=== PATIENT | female | born 1965 | race Caucasian/White ===

== ENCOUNTER 2016-09-06 12:50 | Observation (INO) ==
--- NOTE | 2016-09-06 09:53 | Discharge Summary ---
Outpatient Proc Discharge Plan - Plan Additional Instructions: Knee Scope Weight bearing as tolerated Elevate extremity Remove girma wrap and bulky dressing in the A.M. Leave steri strips in place May shower in 24 hours Use ice for 20 minutes every hour while awake for 2-3 days Begin gentle knee range of motion exercise No driving for 24 hours or while taking pain medications Call office with any questions or concerns at [phone] Prescriptions: Clindamycin [Cleocin] 150 mg PO Q6HR #7 capsule HYDROcodone/Acet 5/325 mg [[place] 5-325 mg] 1 tab PO Q6H PRN #14 tab PRN Reason: Pain Ibuprofen [Motrin] 800 mg PO Q8HR #20 tablet Home Medications: Albuterol Sulfate [Albuterol Inhaler] 2 puff IH QID 2 Days 08/06/15 [Rx] Clindamycin [Cleocin] 150 mg PO Q6HR #7 capsule 09/06/16 [Rx] Diclofenac Sodium [Voltaren] 1 appl TP DAILY 09/06/16 [History] Estradiol [Estrace] 1 mg PO DAILY 09/06/16 [History] Furosemide [Lasix] 40 mg PO DAILY 09/06/16 [History] HYDROcodone/Acet 5/325 mg [[place] 5-325 mg] 1 tab PO Q6H PRN #14 tab 09/06/16 [Rx ] Ibuprofen [Motrin] 800 mg PO Q8HR #20 tablet 09/06/16 [Rx] Lisinopril/Hydrochlorothiazide [Zestoretic 20-12.5 mg Tablet] 1 each PO DAILY [History] Potassium Chloride [K-Tab ER] 20 meq PO QAM 09/06/16 [History] Potassium Chloride [Klor-Con 10] 10 meq PO QPM 09/06/16 [History] Pregabalin [Lyrica] 75 mg PO DAILY 09/06/16 [History] Sertraline [Zoloft] 150 mg PO DAILY 09/06/16 [History]
[~2016-09-06 12:50] MED LIST: *HR* OxyCODONE/APAP 5/325 TABLET PO PRN
[2016-09-06] MEDS ORDERED: Ondansetron 4 MG/2 ML VIAL IVP ONE (13:03)
[2016-09-06] MEDS ORDERED: *HR* Labetalol 100 MG/20 ML MDV IVP PRN (13:03)
[2016-09-06] MEDS ORDERED: *HR* Promethazine 25 MG/ML VIAL IVP PRN (13:03)
[2016-09-06] MEDS ORDERED: *HR* Propofol 200 MG/20 ML VIAL IVP ONE (13:07)
[2016-09-06] MEDS ORDERED: *HR* FentaNYL (PF) 100 MCG/2 ML VIAL ONE ×3 (13:07→14:55)
[2016-09-06] MEDS ORDERED: Lidocaine -MPF 2% 2 ML VIAL ONE (13:12)
[2016-09-06] MEDS ORDERED: Ondansetron 4 MG/2 ML VIAL ONE (13:12)
[2016-09-06] MEDS ORDERED: Dexamethasone 4 MG/ML VIAL ONE (13:12)
[2016-09-06] MEDS ORDERED: Ringers Solution, Lactated 1,000 ML IVC SCH (13:15)
[2016-09-06] MEDS ORDERED: Albuterol 2.5 MG/3 ML NEBULIZER IH ONE (13:15)
[2016-09-06] MEDS ORDERED: CeFAZolin Pre 3,000 MG/100 ML 3,000 MG/100 ML BAG IVPB ONE (13:15)
--- NOTE | 2016-09-06 13:43 | History & Physical Report ---
Date of Encounter: 09/06/16 Time of Encounter: 13:42 24 Hour HP Update - Instructions Instructions: If the History and Physical is less than 30 days old and was completed prior to A.M. admission and or procedure and has NOT been updated on calendar day of procedure please complete this update prior to performing procedure. - Update Patient reports changes in Medical Condition: No Changes in examination, assessment, or condition: No Changes in Medication: No Preop tests/diagnostics Reviewed: Yes Surgery Remains Indicated: Yes Consent for Planned Operative Procedure(s) Verified: Yes - Pre-Operative Checklist Preoperative Checklist Indicated: No Prophylactic Antibiotic Ordered: Yes Is VTE Prophylaxis Indicated?: NO
--- NOTE | 2016-09-06 13:47 | Anesthesia Evaluation PreOp ---
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 (chronic back pain with morphine pain pump) Other Medical History: Other (obesity BMI=44.1) Anesthesia History: Past Anesthesia (hysterectomy), Problems (PONV), Difficult Airway (Ok with LMA in past) Alcohol Use: none Drug use: none Medications and Allergies Tramadol HCl [Tramadol HCl ER] 100 mg PO BID PRN #10 cpbp.25.75 03/10/15 [Rx] Cephalexin [Keflex] 500 mg PO QID #40 capsule 04/22/15 [Rx] GuaiFENesin ER [Mucinex] 1,200 mg PO BID #20 tbbp.12hr 04/22/15 [Rx] HYDROcodone/Acet 5/325 mg [[place] 5-325 mg] 1 tab PO Q6H PRN #8 tab 06/15/15 [Rx] Albuterol Sulfate [Albuterol Inhaler] 2 puff IH QID 2 Days 08/06/15 [Rx] Benzonatate [Tessalon] 200 mg PO TID PRN #20 capsule 08/06/15 [Rx] Cetirizine HCl [Zyrtec] 10 mg PO DAILY 4 Days 08/06/15 [Rx] Oseltamivir Phosphate [Tamiflu] 75 mg PO BID 5 Days 08/06/15 [Rx] Ibuprofen [Motrin] 400 mg PO Q6HR #30 tablet 03/07/16 [Rx] Ondansetron ODT [Zofran ODT] 4 mg PO Q6HR PRN #10 tab.rapdis 03/07/16 [Rx] Clindamycin [Cleocin] 150 mg PO Q6HR #7 capsule 09/06/16 [Rx] HYDROcodone/Acet 5/325 mg [[place] 5-325 mg] 1 tab PO Q6H PRN #14 tab 09/06/16 [Rx ] Ibuprofen [Motrin] 800 mg PO Q8HR #20 tablet 09/06/16 [Rx] Allergies prednisone Allergy (Verified 04/18/16 17:37) Palpitations caffeine [From Excedrin Migraine] Adverse Reaction (Verified 04/18/16 17:37) Dizziness codeine Adverse Reaction (Verified 04/18/16 17:37) Nausea Cortisone Adverse Reaction (Verified 04/18/16 17:37) Hypertension soap Adverse Reaction (Verified 08/23/16 15:32) Itching - Meds/Allergy Pre-op Review Medications Reviewed: Yes Allergies Reviewed: Yes Beta Blockers on Current Med List: No Anesthesia Results - Labs Laboratory Tests 03/05/16 03/07/16 08/23/16 15:40 17:32 15:45 WBC 6.5 Hgb 12.1 Hct 38.4 Plt Count 298 PT 10.9 INR 1.0 APTT 31.0 Sodium 141 Potassium 4.1 BUN Creatinine 08/23/16 15:45 WBC Hgb Hct Plt Count PT INR APTT Sodium Potassium BUN 10 Creatinine 0.79 - Imaging EKG: report reviewed (03/05/2016 SR NSST abnormality) Additional studies: 11/05/2014 Echo Impressions: LVEF 60%. Normal left ventricular size and systolic function. Normal diastolic function of the left ventricle. Mildly enlarged left atrial size. RV is mildly dilated with normal function. Normal right atrial size. No significant valvular dysfunction. Estimated RVSP was 27 mmHg. No pulmonary hypertension. The IVC is not dilated. Anesthesia Exam O2 Sat Height 1.68 m Height 1.68 m Height 1.68 m Weight 123.831 kg Weight 123.831 kg Weight 128.48 kg O2 Sat by Pulse Oximetry 94 Vital Signs Temp Pulse Resp BP Pulse Ox 98.1 F 50 16 107/60 94 09/06/16 13:30 09/06/16 13:30 09/06/16 13:30 09/06/16 13:30 09/06/16 13:30 Height: 5'6'' Weight: 273 lbs NPO (# of Hours): 8 Pain Scale: 6 Pain Scale Used: Numeric (1 - 10) - HEENT Pupil (Motor): EOMI Mallampati: IV Teeth: Normal Oral Opening: Greater than 3 - SERVICE UNIT OPERATOR LOC: Oriented SERVICE UNIT OPERATOR Motor: Normal RUE, Normal LUE, Normal RLE, Normal LLE, Normal Face SERVICE UNIT OPERATOR Sensory: Normal: RUE, LUE, LLE, Face, Deficit: RLE (radiculopathy) - Cardiac Rhythm: Regular Murmur: None - Pulmonary Breath Sounds: bilateral Clear Respiratory Effort: Symmetrical Anesthesia Assess/Plan ASA Score: 3 Modified [place] Scale for Level of Consciousness: Cooperative, oriented, and tranquil Anesthetic Plan: General Monitoring Plan: Standard Monitors Recovery Plan: PACU
[2016-09-06] MEDS ORDERED: Bupivacaine/EPI 1:200k 0.5%PF 10 ML VIAL ONE (14:15)
[2016-09-06] MEDS ORDERED: Bupivacaine/EPI 1:200k 0.5%PF 30 ML VIAL ONE (14:43)
--- NOTE | 2016-09-06 14:52 | Orthopedic Operative Note ---
Date of procedure: 09/06/16 Pre-op diagnosis: Left knee medial meniscus tear Post-op diagnosis: same Procedure: Procedure: Left knee arthroscopy partial medial menisectomy Estimated blood loss: 5cc Hardware: Cartilage surfaces: Patella: 3 Trochlear groove:normal Medial compartment: 3 Lateral compartment:normal Exam Under anesthesia: Full flexion full extension no instability Patient was brought to the operating room and placed on the operating room table. After general anesthesia was administered. The operative leg was examined and noted. The operative leg was prepped and draped in the sterile surgical fashion. The patient received IV antibiotics prior to skin incision. A superior medial outflow portal was established. The arthroscope was introduced through an anterolateral portal. Diagnostic evaluation of the patella trochlear groove medial and lateral compartments were performed. Patient noted to have grade 3 arthritic changes undersurface of patella medial femoral condyle. The medial and lateral menisci were evaluated. No tear of the lateral meniscus. Medial meniscus had a irreparable tear mid body. The medial meniscus tear was treated with a partial meniscectomy with a basket and a shaver to contour it appropriately. ACL and PCL were without pathology. The arthroscope was removed from the knee. Portals were closed with interrupted 2-0 nylon suture. The knee was infiltrated with half percent Marcaine with epinephrine. The patient was placed in a sterile dressing. The patient was extubated and tolerated the procedure well and transferred to the recovery room in stable condition. Anesthesia: ISABELA Surgeon: Yonathan Ch Condition: stable Disposition: PACU
[2016-09-06] MEDS: *HR* HYDROmorphone (PF) 1 MG/ML SYRINGE IVP PRN ×2 (15:21→15:55)
[2016-09-06] MEDS ORDERED: *HR* Morphine 2 MG/ML SYRINGE ONE ×2 (15:35→15:36)
[2016-09-06] MEDS ORDERED: Nitroglycerin 0.4 MG TAB.SUBL SL ONE (16:03)
--- NOTE | 2016-09-06 17:40 | Anesthesia Progress Note ---
Date of Encounter: 09/06/16 Time of Encounter: 17:24 Anesthesia Note - Note Note: 09/06/16 17:24 Patient c/o chest pain/pressure and nausea post op in PACU. She describes it as feeling like something is sitting on her chest. Patient had nausea, with emesis in PACU. O2 was applied by NC. VSS. RN had EKG tracing showing momentary run of wide complex rhythm. Tracing printed. Morphine 6mg given, nitro given SL, 12 lead obtained with no acute changes. Trop I sent. Due to previous co- morbidities decision was made to admit under hospitalist care. Dr Ch notified. Chest pain at this point is improving, VSS.
[2016-09-06] MEDS ORDERED: Ondansetron 4 MG/2 ML VIAL IVP PRN (18:33)
[2016-09-06] MEDS ORDERED: Naloxone 0.4 MG/ML INJ IVP PRN (18:33)
--- NOTE | 2016-09-06 19:38 | Internal Med History&Physical ---
<Edna Best - Last Filed: 09/06/16 20:26> Date of Encounter: 09/06/16 Time of Encounter: 19:00 Assessment and Plan (1) Chest pain Current visit: Yes Status: Acute 1 patient experienced chest pain today postoperatively she did have associated nausea vomiting as well as wide complex arrhythmia. EKG was obtained which revealed no ST T wave abnormalities first cardiac troponin was negative we will continue to cycle troponins 2 we will obtain cardiac echo 3 NPO after midnight 4 cardiac stress in am 5 oxygen as needed nitroglycerin for chest pain Qualifiers: Chest pain type: unspecified Qualified Code(s): R07.9 - Chest pain, unspecified (2) Hypertension Current visit: Yes Status: Acute 1 presently controlled we will continue with lisinopril hydrochlorothiazide caused to maintain systolic was 140 2 low sodium diet Qualifiers: Hypertension type: essential hypertension Qualified Code(s): I10 - Essential (primary) hypertension (3) S/P left knee arthroscopy Current visit: Yes Status: Acute 1 patient is to follow-up with Dr. Ch 2 continue with present pain regime (4) DVT prophylaxis Current visit: Yes Status: Acute [facility] Internal Medicine - H&P: HPI Admitted From: Intrahospital Transfer Plans for Post Hospital Care: Home History of present illness: Ms. Diaz is a 51 year old female past medical history of hypertension hyperlipidemia GERD radicular pain NH 2009. Patient underwent left arthroscopy per Dr. Ch today. Surgical procedure was unremarkable however doing postop patient experienced chest pain as well as a wide complex arrhythmia. She described the chest pain as pressure gas-like nonradiating she did become nauseous and vomited pain was relieved once she drank carbonated beverage. EKG was obtained per anesthesia sinus rhythm with no ST-T wave abnormalities. Troponin obtained which was 0 patient was admitted for further observation. Presently patient denies any chest pain or shortness of breath she sinus rhythm on the monitor lung sounds are clear heart sounds S1-S2 regular rate no rubs gallops clicks or murmurs noted left knee with dressing intact as well as ice pack but her extremities pink with brisk capillary refill bilaterally. She is hemodynamically stable at this time. I reviewed his case with Dr. Lowe who agrees with plan Past Med Surg Social Fam HX - Past Medical History Medical history: coronary artery disease, GERD, hyperlipidemia, hypertension, myocardial infarction Psychiatric history: anxiety, depression - Past Surgical History Surgical History: , cholecystectomy, hysterectomy, knee replacement, orthopedic, other - Social History Smoking Status: Never smoker Smokeless Tobacco Status: No Alcohol use: none Drug use: none - Family History Father Living Status: Still Living Hx Family Cardiac Disorders: Yes (heart disease and HTN ) Internal Medicine - H&P: Meds Albuterol Sulfate [Albuterol Inhaler] 2 puff IH QID 2 Days 08/06/15 [Rx] Clindamycin [Cleocin] 150 mg PO Q6HR #7 capsule 09/06/16 [Rx] Diclofenac Sodium [Voltaren] 1 appl TP DAILY 09/06/16 [History] Estradiol [Estrace] 1 mg PO DAILY 09/06/16 [History] Furosemide [Lasix] 40 mg PO DAILY 09/06/16 [History] HYDROcodone/Acet 5/325 mg [[address] 5-325 mg] 1 tab PO Q6H PRN #14 tab 09/06/16 [Rx ] Ibuprofen [Motrin] 800 mg PO Q8HR #20 tablet 09/06/16 [Rx] Lisinopril/Hydrochlorothiazide [Zestoretic 20-12.5 mg Tablet] 1 each PO DAILY [History] Potassium Chloride [K-Tab ER] 20 meq PO QAM 09/06/16 [History] Potassium Chloride [Klor-Con 10] 10 meq PO QPM 09/06/16 [History] Pregabalin [Lyrica] 75 mg PO DAILY 09/06/16 [History] Sertraline [Zoloft] 150 mg PO DAILY 09/06/16 [History] Allergies prednisone Allergy (Verified 09/06/16 14:04) Palpitations caffeine [From Excedrin Migraine] Adverse Reaction (Verified 09/06/16 14:04) Dizziness codeine Adverse Reaction (Verified 09/06/16 14:04) Nausea Cortisone Adverse Reaction (Verified 09/06/16 14:04) Hypertension soap Adverse Reaction (Verified 09/06/16 14:04) Itching All Systems PM: A 10-system review of systems was performed and is negative for pertinent findings except as documented above in the HPI. - Constitutional Constitutional: no chills, no fever(s), no night sweats - EENT Eyes: no change in vision, no discharge, no pain, no photophobia Nose, mouth and throat: no dysphagia, no nasal discharge, no neck pain, no sore throat - Cardiovascular Cardiovascular ROS IM: chest pain - Respiratory Respiratory: no cough, no dyspnea, no wheezing, no excessive phlegm production - Gastrointestinal Gastrointestinal: no abdominal pain, no diarrhea, no hematemesis, no hematochezia, no melena, no nausea, no vomiting - Genitourinary Genitourinary: no change in urinary stream, no dysuria, no flank pain, no hematuria - Musculoskeletal Musculoskeletal ROS IM: joint swelling, no numbness, no tingling - Neurological Neurological ROS: no confusion, no convulsions, no focal weakness, no numbness, no tingling, no tremor(s) - Constitutional Vitals: Temp Pulse Resp BP Pulse Ox 98.1 F 75 17 113/71 96 09/06/16 17:56 09/06/16 17:56 09/06/16 17:56 09/06/16 17:56 09/06/16 17:56 General appearance: Present: A&O X 3, morbidly obese, answers questions appropriately - Head Head exam: Present: atraumatic, normocephalic - Neck Neck exam general surgery: Present: supple, trachea midline. Absent: lymphadenopathy - Respiratory Respiratory exam: Present: CTAB. Absent: accessory muscle use, rales, rhonchi, wheezes - Cardiovascular Cardiovascular exam: Present: RRR, +S1, +S2. Absent: diastolic murmur, gallop, rubs, systolic murmur - GI/Abdominal GI/Abdominal exam: Present: normal bowel sounds, soft, no peritoneal signs. Absent: distended, tenderness - Extremities Exam Extremities exam: Present: warm, radial pulses palpable and symetrical. Absent : calf tenderness, cyanotic, pedal edema - Neurological Exam Neurological exam: Present: CN II-XII intact, oriented X3, no focal deficits. Absent: pronater drift, facial droop, speech deficit - Skin Skin exam: Present: dry, intact Internal Med - H&P Results - Labs CBC & Chem 7: 09/06/16 19:22 Labs: Cardiac Enzymes 09/06/16 Range/Units 16:39 Troponin I 0.00 (0-0.03) ng/mL - EKG Data EKG shows normal: sinus rhythm Rate: normal <Hermelindo Lowe R - Last Filed: 09/07/16 12:34> Date of Encounter: 09/06/16 Internal Medicine - H&P: HPI History of present illness: Ms. Diaz is a 51 year old female All Systems PM: A 10-system review of systems was performed and is negative for pertinent findings except as documented above in the HPI. - Constitutional Vitals: Temp Pulse Resp BP Pulse Ox 98.6 F 68 18 122/71 96 09/07/16 10:58 09/07/16 10:58 09/07/16 10:58 09/07/16 10:58 09/07/16 10:58 Internal Med - H&P Results - Labs CBC & Chem 7: 09/07/16 03:28 09/07/16 03:28 Labs: Short CBC 09/07/16 Range/Units 03:28 WBC 8.6 (4.3-11.1) K/mcL Hgb 12.1 (11.5-15.4) g/dL Hct 38.5 (35.3-44.9) % Plt Count 335 (140-400) K/mcL Neutrophils # 7.0 (1.6-8.9) K/mcL BMP 09/06/16 09/07/16 19:22 03:28 Sodium 141 142 Potassium 3.8 4.1 Chloride 105 108 Carbon Dioxide 24 26 BUN 13 15 Creatinine 0.97 0.84 Glucose 175 H 116 H Calcium 9.2 9.4 Cardiac Enzymes 09/06/16 09/06/16 09/07/16 Range/Units 16:39 19:22 03:28 Troponin I 0.00 0.00 0.00 (0-0.03) ng/mL - Attending Attestation I performed history and physical examination of the patient and discussed management with FACTORY WORKER/ANP. I reviewed the FACTORY WORKER/ANPs note and agree with the documented findings and plan of care. 51 Y/M with h/o HTN, HLD, GERD, reported NH in 2009 with normal LHC at that time , underwent left knee arthroplasty with Dr. Ch. In the post operative period she developed mid-sternal chest discomfort, with nausea and vomiting. She apparently had wide complex rhythm at the time of pain. Denies further chest pain or palpitations. O/E: Not in acute distress. Cardiac regular rate and rhythm. Lungs clear to auscultation. EKG personally reviewed by me shows sinus rhythm, no acute ischemic changes. Labs reviewed. Troponin negative. A/P: Chest pain / NSVT in the postoperative period: Cardiac monitoring, trend troponins. Magnesium level is normal. Check lipid panel. Cardiology consultation.
[2016-09-06] MEDS ORDERED: *HR* OxyCODONE/APAP 5/325 TABLET PO PRN (19:49)
[2016-09-06 19:52] LABS: BUN/Creatinine Ratio 13 (6-26); Blood Urea Nitrogen 13 mg/dL (7-20); Calcium 9.2 mg/dL (8.6-10.8); Carbon Dioxide 24 mEq/L (19-29); Chloride 105 mEq/L (98-109); Glucose 175 mg/dL (70-99); Osmolality,Calculated 296 (280-300); Potassium 3.8 mEq/L (3.5-4.5); Sodium 141 mEq/L (136-145); eGFR For African Americans > 60 (> 60); eGFR For Non-African Americans > 60 (> 60)
[2016-09-06] MEDS ORDERED: Aspirin 325 MG TABLET PO ONE (20:20)
[2016-09-06] MEDS: *HR* Morphine 2 MG/ML SYRINGE IVP PRN (20:53)
[2016-09-07 04:13] LABS: Basophils % 0.1 %; Hematocrit 38.5 % (35.3-44.9); Hemoglobin 12.1 g/dL (11.5-15.4); Immature Granulocytes % 0.2 % (0-4); Lymphocytes # 1.1 K/mcL (0.6-4.6); Mean Corpuscular HGB Conc 31.4 g/dL (31.6-35.5); Mean Corpuscular Hemoglobin 28.3 pg (28.0-33.3); Mean Corpuscular Volume 90.2 fL (83.0-100.0); Monocytes # 0.4 K/mcL (0.0-1.3); Monocytes % 4.9 %; Platelet Count 335 K/mcL (140-400); Red Blood Count 4.27 M/mcL (3.82-4.97); Red Cell Distribution Width 13.2 % (11.5-14.5); Segmented Neutrophils % 81.8 %
[2016-09-07 04:38] LABS: BUN/Creatinine Ratio 18 (6-26); Blood Urea Nitrogen 15 mg/dL (7-20); Calcium 9.4 mg/dL (8.6-10.8); Carbon Dioxide 26 mEq/L (19-29); Chloride 108 mEq/L (98-109); Chol/HDL Ratio 5.3 (0-4.9); Cholesterol 268 mg/dL (< 200); Glucose 116 mg/dL (70-99); HDL Cholesterol 51 mg/dL (40-59); LDL Cholesterol,Calculated 195 mg/dL (0-99); Osmolality,Calculated 296 (280-300); Potassium 4.1 mEq/L (3.5-4.5); Sodium 142 mEq/L (136-145); Triglycerides 111 mg/dL (< 150); eGFR For African Americans > 60 (> 60); eGFR For Non-African Americans > 60 (> 60)
[2016-09-07] MEDS ORDERED: Pregabalin 75 MG CAPSULE PO SCH (09:00)
[2016-09-07] MEDS ORDERED: Aspirin Enteric Coated 81 MG Tablet PO SCH (09:00)
[2016-09-07] MEDS ORDERED: Lisinopril-HCTZ 20-12.5mg TABLET PO SCH (09:00)
[2016-09-07] MEDS ORDERED: Furosemide 40 MG TABLET PO SCH (09:00)
[2016-09-07] MEDS: *HR* Morphine 2 MG/ML SYRINGE IVP PRN (09:14)
--- NOTE | 2016-09-07 10:18 | ECHO - Doppler Report ---
Echocardiogram Name: Crys Diaz Date of Study: 09/07/2016 Date: 1965 Ht: 66.0 in Medical Record#: [id number] Age: 51 Wt: 270.0 lb Gender: Female BSA: 2.27 Order #: [id number] Location: [facility] Room #: [id number] Reading Physician: Vince Shields DO, KENNEDY ROMERO Cooker Helper: Shadi Jones RN Ordering Physician: Edna Best CNP Primary Physician: Jesse Duval MD Indications: Chest pain Impressions: LVEF 60-65%. Normal LV chamber size, wall thickness and function. Normal left ventricular diastolic function. Normal right ventricular structure and function. No evidence of pulmonary hypertension. No significant valvular dysfunction. Left Ventricular Wall Motion: Rest Echo Findings All wall segments showed normal motion. Findings: Study Quality * Technically adequate exam. ECG Findings * Normal sinus rhythm. Left Ventricle * LVEF 60-65%. * Normal LV chamber size, wall thickness and function. * Normal left ventricular diastolic function. Right Ventricle * Normal right ventricular structure and function. Left Atrium * Mildly dilated left atrium. Right Atrium * Mildly dilated right atrium. Interatrial Septum * Interatrial septum not well evaluated. Aortic Valve * Trileaflet aortic valve with normal function. * No aortic regurgitation. * No aortic stenosis. Mitral Valve * Normal mitral valve structure and function. * No mitral regurgitation. * No mitral stenosis. Tricuspid Valve * Normal tricuspid valve structure and function. * Trace tricuspid regurgitation. * No evidence of pulmonary hypertension. Pulmonic Valve * Pulmonic valve is not well visualized. * No pulmonic regurgitation. Aorta * Normally sized aortic root. Pericardium * The pericardium appears normal. IVC * The IVC is not well evaluated. Pulmonary Artery * Normal visualized portions of the main pulmonary artery. History Hypertension Hypercholesteremia Family History of CAD Myocardial Infarction 11/05/2014 a Previous Echo was performed. Measurements: BP: 124/ 63 2D Normal Values RVIDd: 3.60 cm <2.7 cm IVSd: 1.10 cm 0.6 - 1.0 cm LVIDd: 4.40 cm 3.7 - 5.6 cm LVPWd: 1.10 cm 0.6 - 1.1 cm LVIDs: 2.80 cm 1.5 - 3.6 cm LA: 4.30 cm 2.0 - 4.0cm %FS: 36.40 cm >25 % LVOT Diam: 2.00 cm LA volume: Mitral Valve Peak E:.92 m/sec Peak A:.74 m/sec E/A Ratio:1.3 Peak E' Lat Jose Daniel:10.7 cm/s Peak E' Med Jose Daniel:9.89 cm/s E/E' Lat Ratio:8.6 E/E' Med Ratio:9.3 Tricuspid Valve TV Regurg Peak Grad: 25.00mmHg TV Regurg Peak Jose Daniel: 2.49m/sec Updated by Vince Shields DO, NICK, KENNEDY, FASADELINE on 09/07/2016 10:12:32 AM electronically signed on 09/07/2016 10:13:07 AM with status of Final Wall Motion Davison: 1=Normal, 2=Hypokinesis, 3=Akinesis, 4=Dyskinesis, 5=Aneurysmal, 6=Hyperkinetic, X=Not Visualized (Blank)=Missing
--- NOTE | 2016-09-07 11:02 | Cardiology Consult Note ---
Date of Encounter: 09/07/16 Time of Encounter: 11:00 Assessment and Plan (1) Chest pain Current Visit: Yes Status: Acute Atypical chest pain after surgery. Pt has mid epigastric tenderness. Ekg with no concerning findings. NSR with no ST changes. Troponin negative x3. No wide complex arrythmias seen in telemetry review or in chart. Telemetry review shows NSR. Avg HR 72 bpm. No recurrent chest pain. TTE reviewed. EF 60-65%, no significant valvular disease. F/u in out pt setting with PCP. Consider stress test in out pt setting. Recommend asa, statin, and bb. Qualifiers: Chest pain type: unspecified Qualified Code(s): R07.9 - Chest pain, unspecified (2) Hyperlipidemia Current Visit: Yes Status: Acute Recommend starting statin therapy. Reports history of PR in 2009. LHC at that time did not show any obstructions per pt. LDL 195. Pt agreeable to restart lipitor. Qualifiers: Hyperlipidemia type: pure hypercholesterolemia Qualified Code(s): E78.00 - Pure hypercholesterolemia, unspecified; E78.0 - Pure hypercholesterolemia Discussion w patient/family: The assessment and plan as outlined above was discussed with the patient and/or family members who expressed understanding and agreement. All questions were answered. Thank you for involving us in the care of your patient. Please call with any questions. History of Present Illness Consult date: 09/07/16 Requesting physician: Edna Best Consult reason: elevated troponin Chief complaint: weakness, syncope, fever, chills. History of present illness: Ms. Diaz is a 51 year old female with a history of HTN, HLD, GERD, reported PR in 2009 with normal LHC at that time, and obesity who underwent left knee arthroplasty with Dr. Ch. In the post operative period she she developed mid- sternal chest discomfort. She describes the chest discomfort as a mid-sternal pressure radiating to her back associated with nausea and vomiting. States that she felt like she needed to belch. Her discomfort was relieved when she drank a carbonated beverage. Reports similar chest discomfort after eating in the past. EKG taken showed NSR with no acute ST changes. There was report of possible wide complex rhythm during the time of pain but was not caught on EKG. No rhythm strips obtained. Troponin negative x3. Cardiology consulted for further eval. Denies recurrent chest discomfort. Past Med Surg Social Fam HX - Past Medical History Attestation: Yes The following information was validated with the patient. Medical history: GERD, hyperlipidemia, hypertension, myocardial infarction Psychiatric history: anxiety, depression - Past Surgical History Surgical History: , cholecystectomy, hysterectomy, knee replacement, orthopedic, other - Social History Smoking Status: Never smoker Smokeless Tobacco Status: No Alcohol use: none Drug use: none - Family History Father Living Status: Still Living Hx Family Cardiac Disorders: Yes (heart disease and HTN ) Medications and Allergies Albuterol Sulfate [Albuterol Inhaler] 2 puff IH QID 2 Days 08/06/15 [Rx] Clindamycin [Cleocin] 150 mg PO Q6HR #7 capsule 09/06/16 [Rx] Diclofenac Sodium [Voltaren] 1 appl TP DAILY 09/06/16 [History] Estradiol [Estrace] 1 mg PO DAILY 09/06/16 [History] Furosemide [Lasix] 40 mg PO DAILY 09/06/16 [History] HYDROcodone/Acet 5/325 mg [[place] 5-325 mg] 1 tab PO Q6H PRN #14 tab 09/06/16 [Rx ] Ibuprofen [Motrin] 800 mg PO Q8HR #20 tablet 09/06/16 [Rx] Lisinopril/Hydrochlorothiazide [Zestoretic 20-12.5 mg Tablet] 1 each PO DAILY [History] Potassium Chloride [K-Tab ER] 20 meq PO QAM 09/06/16 [History] Potassium Chloride [Klor-Con 10] 10 meq PO QPM 09/06/16 [History] Pregabalin [Lyrica] 75 mg PO DAILY 09/06/16 [History] Sertraline [Zoloft] 150 mg PO DAILY 09/06/16 [History] Allergies prednisone Allergy (Verified 09/06/16 14:04) Palpitations caffeine [From Excedrin Migraine] Adverse Reaction (Verified 09/06/16 14:04) Dizziness codeine Adverse Reaction (Verified 09/06/16 14:04) Nausea Cortisone Adverse Reaction (Verified 09/06/16 14:04) Hypertension soap Adverse Reaction (Verified 09/06/16 14:04) Itching All Systems Review: A 10-system review of systems was performed and is negative for pertinent findings except as documented above in the HPI. Physical Examination Vital Signs, Last 4 Hours Temp Pulse Resp BP Pulse Ox 09/07/16 07:12 98.3 F 78 17 124/63 92 General: Conversant, No Apparent Distress HEENT: Atraumatic, Normocephaly, Mucus Membranes Moist Neck: No JVD, Normal carotid pulses Cardiac: Reg Rate and Rhythm, Normal S1 and S2, No Murmur Lungs: Normal Breath Sounds, No Wheeze, Rales, Rhonchi Neuro: Alert and responsive, No focal deficits noted Abdomen: Soft, Non-Tender Skin: No rashes noted on visualized skin Musculoskeletal: No Chest Wall Tenderness, Other (Mildly tender mid epigastric area.) Extremities: No Clubbing, No Cyanosis, No Edema, Normal Pulses, Other (LLE girma wrap.) Results 09/07/16 03:28 09/07/16 03:28 Lab Results 09/06/16 09/06/16 09/06/16 16:39 19:22 19:22 WBC Hgb Hct Plt Count Sodium 141 Potassium 3.8 Chloride 105 Carbon Dioxide 24 BUN 13 Creatinine 0.97 Glucose 175 H Calcium 9.2 Magnesium 2.0 Troponin I 0.00 0.00 09/07/16 09/07/16 09/07/16 03:28 03:28 03:28 WBC 8.6 Hgb 12.1 Hct 38.5 Plt Count 335 Sodium 142 Potassium 4.1 Chloride 108 Carbon Dioxide 26 BUN 15 Creatinine 0.84 Glucose 116 H Calcium 9.4 Magnesium 2.0 Troponin I 0.00 - Imaging and Cardiology Echo: report reviewed - EKG Interpretation EKG results cardiology: personally reviewed (SR with no ST changes.) Consult Discharge Plan - Plan Additional Instructions: Knee Scope Weight bearing as tolerated Elevate extremity Remove girma wrap and bulky dressing in the A.M. Leave steri strips in place May shower in 24 hours Use ice for 20 minutes every hour while awake for 2-3 days Begin gentle knee range of motion exercise No driving for 24 hours or while taking pain medications Call office with any questions or concerns at [phone] Referrals: Jesse Duval Jr, MD [Primary Care Provider] -
[2016-09-07 11:03] VITALS: BP 122/71
--- NOTE | 2016-09-07 17:17 | Electrocardiograph Report ---
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
--- NOTE | 2016-09-07 18:07 | Discharge Summary ---
Date of Encounter: 09/07/16 Time of Encounter: 15:30 - Discharge Diagnosis (1) Chest pain Priority: Primary Status: Resolved Comments: Patient denied chest pain or shortness of breath throughout this admission. Echocardiogram unremarkable. Seen and evaluated by cardiology who cleared her for outpatient follow-up. Qualifiers: Chest pain type: unspecified Qualified Code(s): R07.9 - Chest pain, unspecified (2) Hypertension Priority: Secondary Status: Chronic Comments: Controlled, follow-up outpatient Qualifiers: Hypertension type: essential hypertension Qualified Code(s): I10 - Essential (primary) hypertension (3) S/P left knee arthroscopy Priority: Primary Status: Acute Comments: Has follow-up appointment on 09/11/16. (4) DVT prophylaxis Priority: Primary Status: Acute Comments: Subcutaneous Lovenox while admitted (5) Hyperlipidemia Priority: Secondary Status: Chronic Comments: Total cholesterol 268, she has no documented allergies to statin, statin initiated at this time for risk factor stratification. Also recommend low- cholesterol diet. Qualifiers: Hyperlipidemia type: pure hypercholesterolemia Qualified Code(s): E78.00 - Pure hypercholesterolemia, unspecified; E78.0 - Pure hypercholesterolemia (6) Morbid obesity with BMI of 40.0-44.9, adult Priority: Secondary Status: Chronic (7) Presence of intrathecal pump Priority: Secondary Status: Chronic Comments: In review of her [facility] report and her chart, she has an intrathecal pain pump. OARRS report otherwise appropriate, will send with couple day supply of pain medication until she can follow up with orthopedics on 09/11/16. - Discharge Medications Prescriptions: Aspirin Enteric Coated [Aspirin EC] 81 mg PO DAILY #30 tablet. Atorvastatin [Lipitor] 40 mg PO HS #30 tablet Metoprolol [Lopressor] 25 mg PO BID #60 tablet Home Medications: Albuterol Sulfate [Albuterol Inhaler] 2 puff IH QID 2 Days 08/06/15 [Rx] Clindamycin [Cleocin] 150 mg PO Q6HR #7 capsule 09/06/16 [Rx] Diclofenac Sodium [Voltaren] 1 appl TP DAILY 09/06/16 [History] Estradiol [Estrace] 1 mg PO DAILY 09/06/16 [History] Furosemide [Lasix] 40 mg PO DAILY 09/06/16 [History] HYDROcodone/Acet 5/325 mg [[place] 5-325 mg] 1 tab PO Q6H PRN #14 tab 09/06/16 [Rx ] Ibuprofen [Motrin] 800 mg PO Q8HR #20 tablet 09/06/16 [Rx] Lisinopril/Hydrochlorothiazide [Zestoretic 20-12.5 mg Tablet] 1 each PO DAILY [History] Potassium Chloride [K-Tab ER] 20 meq PO QAM 09/06/16 [History] Potassium Chloride [Klor-Con 10] 10 meq PO QPM 09/06/16 [History] Pregabalin [Lyrica] 75 mg PO DAILY 09/06/16 [History] Sertraline [Zoloft] 150 mg PO DAILY 09/06/16 [History] Aspirin Enteric Coated [Aspirin EC] 81 mg PO DAILY #30 tablet. 09/07/16 [Rx] Atorvastatin [Lipitor] 40 mg PO HS #30 tablet 09/07/16 [Rx] Metoprolol [Lopressor] 25 mg PO BID #60 tablet 09/07/16 [Rx] Allergies/Adverse Reactions: Allergies prednisone Allergy (Verified 09/06/16 14:04) Palpitations caffeine [From Excedrin Migraine] Adverse Reaction (Verified 09/06/16 14:04) Dizziness codeine Adverse Reaction (Verified 09/06/16 14:04) Nausea Cortisone Adverse Reaction (Verified 09/06/16 14:04) Hypertension soap Adverse Reaction (Verified 09/06/16 14:04) Itching Procedures/tests Complete & Pending: Procedures Performed prior 72 hours Category Date Time Status ECG 12 lead ECG [ECG] Routine Y 09/06/16 15:41 Completed EV echocardiogram Routine Y 09/07/16 19:27 Completed Date of admission: 09/06/16 19:25 Primary care physician: Jesse Duval Jr, MD Discharging clinician: Cecilia Amaya Anticipated date of discharge: 09/07/16 - Patient Status Disposition: Home, Self-Care Condition: Fair Functional capacity at discharge: independent ambulation Overall status at discharge: patient is progressing back to baseline - Discharge Instructions Follow Up With: Jesse Duval Jr, MD [Primary Care Provider] - Reva Askew PAC [Physician Table Lever Operator] - Additional Instructions: Follow-up with primary care provider within one to 2 weeks, follow-up with orthopedics on 4/25/17 at 240pm as scheduled Knee Scope Weight bearing as tolerated Elevate extremity Remove giram wrap and bulky dressing in the A.M. Leave steri strips in place May shower in 24 hours Use ice for 20 minutes every hour while awake for 2-3 days Begin gentle knee range of motion exercise No driving for 24 hours or while taking pain medications Call office with any questions or concerns at [phone] - Diet and Activity Activity: increase activity as tolerated, return to work once cleared by your PCP/specialist Diet: low fat, low cholesterol, low salt diet Hospital course: Ms. Diaz is a 51 year old female with past medical history of hypertension, hyperlipidemia, GERD, CAD status post AR in 2009, anxiety/depression, status post intrathecal pain pump, morbid obesity. Patient had a left knee arthroscopically per Dr. Ch today. Surgical procedure documented as unremarkable [place] during her postoperative time, patient experienced chest pain as well as wide complex arrhythmia. She described the pain as pressure- like, nonradiating and was associated with nausea and vomiting. Pain was relieved when she drank a carbonated beverage. EKG obtained per anesthesia revealed sinus rhythm without ST or T-wave abnormalities. Patient was transferred to the emergency department and subsequently admitted to the hospitalist service for further evaluation and management. Troponin negative 3. Patient denied chest pain or shortness of breath throughout this admission. She was seen and evaluated by cardiology who cleared her for outpatient follow -up. Per cardiology, stress test not indicated while inpatient, consider outpatient stress test if indicated during follow-up. She had an echocardiogram that was unremarkable with ejection fraction of 6065%. Regarding risk factor modification, total cholesterol 268, LDL 195 and she was started on a statin. She was also started on baby aspirin and beta dipesh at cardiology's recommendation. Dr. Ch had written her prescriptions for clindamycin, ibuprofen, and [place] pain medication. She will follow up with orthopedics on 09/11/16. She is discharged home in stable condition with close outpatient follow-up recommended. Echocardiogram impressions: LVEF 60-65%. Normal LV chamber size, wall thickness and function. Normal left ventricular diastolic function. Normal right ventricular structure and function. No evidence of pulmonary hypertension. No significant valvular dysfunction. - Time Spent with Patient Total time spent providing and/or coordinating discharge services: - Constitutional Vitals: Temp Pulse Resp BP Pulse Ox 98.6 F 68 18 122/71 96 09/07/16 10:58 09/07/16 10:58 09/07/16 10:58 09/07/16 10:58 09/07/16 10:58 General appearance: Present: A&O X 3, morbidly obese, pleasant, no acute distress, answers questions appropriately - Head Head exam: Present: atraumatic, normocephalic - Eye Eye exam: Present: PERRL, conjuntiva pink, sclera anicteric Pupils: Present: PERRL - Neck Neck exam general surgery: Present: supple, trachea midline. Absent: lymphadenopathy - Respiratory Respiratory exam: Present: CTAB. Absent: accessory muscle use, rales, respiratory distress, rhonchi, wheezes - Cardiovascular Cardiovascular exam: Present: RRR, +S1, +S2. Absent: diastolic murmur, gallop, rubs, systolic murmur - GI/Abdominal GI/Abdominal exam: Present: normal bowel sounds, soft, no peritoneal signs. Absent: distended, tenderness - Extremities Exam Extremities exam: Present: warm, radial pulses palpable and symetrical. Absent : calf tenderness, cyanotic, pedal edema - Expanded Lower Extremities Exam Knee exam: Present: erythema, swelling, tenderness. Absent: normal inspection Neuro vascular tendon exam: Present: no vascular compromise Gait: Present: antalgic - Neurological Exam Neurological exam: Present: alert, CN II-XII intact, oriented X3, no focal deficits, strengths equal and symetr throughout. Absent: pronater drift, facial droop, speech deficit - Skin Skin exam: Present: dry, intact, normal color, warm - VTE Documentation of Mechanical Device: Venous foot pump, device
[2016-09-07] MEDS ORDERED: *HR* Enoxaparin 30 MG/0.3 ML SYRINGE SQ SCH (20:24)
== END 2016-09-07 19:20 | disposition home or self-care (01) ==
LOC: SAMDAY 12:50 → 3BNU 12:50
PROVIDERS: ADMIT Hospitalist; ATTEND Nurse Practitioner Family

== ENCOUNTER 2021-09-27 13:57 | Observation (INO) ==
[2021-09-27] MEDS ORDERED: Nitroglycerin 0.4 MG TAB.SUBL SL PRN (15:14)
[2021-09-27] MEDS ORDERED: Aspirin 325 MG TABLET PO ONE (15:14)
[2021-09-27 15:47] LABS: Basophils % 0.3 %; Eosinophils # 0.3 K/mcL (0.0-0.6); Eosinophils % 2.6 %; Hematocrit 36.8 % (35.3-44.9); Hemoglobin 12.1 g/dL (11.5-15.4); Immature Granulocytes % 0.5 % (0-4); Lymphocytes # 1.8 K/mcL (0.6-4.6); Lymphocytes % 17.2 %; Mean Corpuscular HGB Conc 32.9 g/dL (31.6-35.5); Mean Corpuscular Volume 88.2 fL (83.0-100.0); Mean Platelet Volume 8.5 fL (9.4-12.4); Monocytes # 0.7 K/mcL (0.0-1.3); Monocytes % 6.9 %; Neutrophils # 7.7 K/mcL (1.6-8.9); Platelet Count 323 K/mcL (140-400); Red Blood Count 4.17 M/mcL (3.82-4.97); Red Cell Distribution Width 15.5 % (11.5-14.5); Segmented Neutrophils % 72.5 %; White Blood Count 10.6 K/mcL (4.3-11.1)
[2021-09-27 15:58] LABS: INR 1.1; Prothrombin Time 11.7 Seconds (9.4-12.1)
[2021-09-27 16:00] LABS: Activated Partial Thrombo Time 28.8 Seconds (26.0-36.0)
[2021-09-27 16:09] LABS: BUN/Creatinine Ratio 17 (6-26); Blood Urea Nitrogen 13 mg/dL (6-20); Calcium 9.2 mg/dL (8.6-10.3); Carbon Dioxide 30 mEq/L (23-29); Chloride 102 mEq/L (98-107); Glucose 95 mg/dL (70-105); Osmolality,Calculated 286 (280-300); Potassium 3.7 mEq/L (3.5-5.1); Sodium 138 mEq/L (136-145); Troponin I < 0.03 ng/mL (< 0.04); eGFR For African Americans > 60 (> 60); eGFR For Non-African Americans > 60 (> 60)
[2021-09-27] MEDS ORDERED: Morphine Sulfate 2 MG/ML SYRINGE IVP ONE (17:22)
[2021-09-27] MEDS ORDERED: Naloxone 0.4 MG/ML INJ IVP PRN (17:25)
[2021-09-27] MEDS ORDERED: *HR* OxyCODONE Immed Rel 5 MG TABLET PO PRN (17:40)
[2021-09-27] MEDS ORDERED: *HR* HYDROcodone/Acet 5/325 mg TABLET PO PRN (17:40)
[2021-09-27] MEDS ORDERED: Acetaminophen 325 MG TABLET PO PRN (17:40)
[2021-09-27] MEDS ORDERED: Perflutren Lipid Microsphere 1.3 ML in 0.9 % Sodium Chloride 8.7 ML IVP PRN (17:42)
[2021-09-27 18:23] LABS: Adenovirus Not Detected (Not Detect); Bordetella Pertussis Not Detected (Not Detect); Chlamydophila pneumoniae Not Detected (Not Detect); Coronavirus 229E Not Detected (Not Detect); Coronavirus HKU1 Not Detected (Not Detect); Coronavirus NL63 Not Detected (Not Detect); Coronavirus OC43 Not Detected (Not Detect); Human Metapneumovirus Not Detected (Not Detect); Human Rhinovirus/Enterovirus Not Detected (Not Detect); Influenza A Subtype 2009 H1 Not Detected (Not Detect); Influenza B Not Detected (Not Detect); Mycoplasma pneumoniae Not Detected (Not Detect); Parainfluenza Virus 1 Not Detected (Not Detect); Parainfluenza Virus 2 Not Detected (Not Detect); Parainfluenza Virus 3 Not Detected (Not Detect); Parainfluenza Virus 4 Not Detected (Not Detect); Respiratory Syncytial Virus Not Detected (Not Detect); SARS-CoV-2 Not Detected (Not Detect)
[2021-09-28 02:55] LABS: Basophils % 0.4 %; Eosinophils # 0.3 K/mcL (0.0-0.6); Eosinophils % 3.3 %; Hematocrit 38.7 % (35.3-44.9); Hemoglobin 12.1 g/dL (11.5-15.4); Immature Granulocytes % 0.4 % (0-4); Lymphocytes # 2.1 K/mcL (0.6-4.6); Lymphocytes % 21.9 %; Mean Corpuscular HGB Conc 31.3 g/dL (31.6-35.5); Mean Corpuscular Hemoglobin 28.3 pg (28.0-33.3); Mean Corpuscular Volume 90.4 fL (83.0-100.0); Mean Platelet Volume 8.7 fL (9.4-12.4); Monocytes # 0.6 K/mcL (0.0-1.3); Monocytes % 6.4 %; Neutrophils # 6.6 K/mcL (1.6-8.9); Platelet Count 312 K/mcL (140-400); Red Blood Count 4.28 M/mcL (3.82-4.97); Red Cell Distribution Width 15.5 % (11.5-14.5); Segmented Neutrophils % 67.6 %; White Blood Count 9.8 K/mcL (4.3-11.1)
[2021-09-28 03:26] LABS: BUN/Creatinine Ratio 16 (6-26); Blood Urea Nitrogen 12 mg/dL (6-20); Carbon Dioxide 28 mEq/L (23-29); Chloride 101 mEq/L (98-107); Chol/HDL Ratio 4.5 (0-4.9); Cholesterol 242 mg/dL (< 200); Glucose 90 mg/dL (70-105); HDL Cholesterol 54 mg/dL (40-59); LDL Cholesterol,Calculated 153 mg/dL (< 100); Osmolality,Calculated 287 (280-300); Potassium 3.7 mEq/L (3.5-5.1); Sodium 139 mEq/L (136-145); Triglycerides 174 mg/dL (< 150); eGFR For African Americans > 60 (> 60); eGFR For Non-African Americans > 60 (> 60)
[2021-09-28] MEDS ORDERED: Regadenoson 0.4 MG/5 ML SYRINGE IVP ONE ×2 (06:26→11:19)
[2021-09-28] MEDS ORDERED: Furosemide 40 MG/4 ML VIAL IVP ONE (07:27)
[2021-09-28] MEDS ORDERED: tiZANidine 4 MG TABLET PO PRN (08:15)
[2021-09-28] MEDS ORDERED: hydroCHLOROthiazide 25 MG TABLET PO SCH (09:00)
[2021-09-28] MEDS ORDERED: lisinopriL 20 MG TABLET PO SCH (09:00)
[2021-09-28] MEDS ORDERED: BuPROPion XL (24 HR) 150 MG TABLET PO SCH (09:00)
[2021-09-28] MEDS ORDERED: Aspirin Enteric Coated 81 MG Tablet PO SCH (09:00)
[2021-09-28] MEDS ORDERED: estradioL 0.5 MG TABLET PO SCH (09:00)
[2021-09-28 09:13] LABS: Estimated Average Glucose 114 mg/dl; Hemoglobin A1C 5.6 %
[2021-09-28 09:35] VITALS: O2SAT 93
[2021-09-28] MEDS ORDERED: *HR* Labetalol 20 MG/4 ML SYRINGE IVP ONE (11:36)
[2021-09-28] MEDS: *HR* Heparin 5,000 UNIT/ML VIAL SQ SCH ×2 (14:13→14:16)
[2021-09-28 14:50] VITALS: PULSE 79; TEMP 98.2
[2021-09-28 16:39] VITALS: BP 131/71
[2021-09-28] MEDS ORDERED: carvediloL 6.25 MG TABLET PO SCH (17:00)
[2021-09-29] MEDS ORDERED: hydroCHLOROthiazide 25 MG TABLET PO SCH (09:00)
== END 2021-09-28 19:31 | disposition home or self-care (01) ==
LOC: EMEROOARM 13:57 → 3BNU 13:57 → SUATTDRO 16:54 → 3BNU 17:34
PROVIDERS: ADMIT Student in an Organized Health Care Education/Training Program; ATTEND Internal Medicine